=== PATIENT | male | born 1970 | race Caucasian/White ===

== ENCOUNTER 2018-04-21 18:25 | Observation (INO) ==
[2018-04-21] MEDS ORDERED: Aspirin 325 MG Tablet PO ONE (19:20)
--- NOTE | 2018-04-21 19:32 | ED ---
HPI General Chief Complaint: Chest Pain Stated Complaint: Chest pain Time Seen by Provider: 04/21/18 19:30 Source: patient Mode of arrival: ambulatory Limitations: no limitations History of Present Illness HPI narrative: 47-year-old male patient with history of cocaine use, presents to the ER today for headache and left-sided chest pains which she states is sharp, especially with taking a deep breath starting about 3-4 hours ago. He has had some elevated blood pressures recently but has not seen anybody for it. He denies any fevers, coughing, or any other symptoms. Pain is currently rated an 8 out of 10. Complete Quality Measures for STEMI Alert Patients Related Data Home Medications Medication Instructions Recorded Confirmed No Known Home Medications 04/21/18 04/21/18 Allergies Allergy/AdvReac Type Severity Reaction Status Date / Time acetaminophen Allergy Intermediate Abdominal Verified 04/21/18 18:39 Pain codeine Allergy Intermediate Abdominal Verified 04/21/18 18:39 Pain morphine Allergy Intermediate Abdominal Verified 04/21/18 18:39 Pain Review of Systems ROS: all other systems reviewed are negative [facility] Medical History Medical History Hypertension (Acute) Social History Social History Substance History: Active Abuse Smoking Status: Current every day smoker Tobacco Type: Cigarettes How Often Do You Have a Drink Containing Alcohol: 2 to 3 times a week Recent Travel in [facility] within the Last 8 Weeks: No Recent Out of Country Travel within the Last 8 Weeks: No Substance Abuse Detail Crack/Cocaine: Substance Use Status: Active Route Used Substance Abuse: Inhalation Substance Abuse Comment: used this am Reason for Use: Feels Good and Get High Immunization History Tetanus Immunization: Unsure Hx Influenza Vaccine This Season: No Exam Narrative Exam Narrative: GENERAL: Well-developed middle-age male patient currently in mild distress. Awake and oriented 3. SKIN: Focused skin assessment warm/dry. HEAD: Atraumatic. Normocephalic. EYES: Pupils equal and round. No scleral icterus. No injection or drainage. ENT: No nasal bleeding or discharge. Mucous membranes pink and moist. NECK: Trachea midline. No JVD. CARDIOVASCULAR: Regular rate and rhythm. No murmur appreciated. RESPIRATORY: No accessory muscle use. Clear to auscultation. Breath sounds equal bilaterally. GASTROINTESTINAL: Abdomen soft, non-tender, nondistended. Hepatic and splenic margins not palpable. MUSCULOSKELETAL: No obvious deformities. No clubbing. No cyanosis. No edema. NEUROLOGICAL: Awake and alert. No obvious cranial nerve deficits. Motor grossly within normal limits. Normal speech. PSYCHIATRIC: Appropriate mood and affect; insight and judgment normal. Course Initial Documented Vital Signs Temperature 98.4 F 04/21/18 18:33 Pulse Rate 89 04/21/18 18:33 Respiratory Rate 18 04/21/18 18:33 Blood Pressure 162/90 H 04/21/18 18:33 Pulse Oximetry 97 04/21/18 18:33 Last Documented Vital Signs Temperature 98.4 F 04/21/18 18:33 Pulse Rate 84 04/21/18 18:36 Respiratory Rate 20 04/21/18 18:36 Blood Pressure 171/84 H 04/21/18 18:36 Pulse Oximetry 98 04/21/18 21:49 Medical Decision Making MDM Narrative Medical decision making narrative: EKG was unremarkable. He is positive for cocaine. Lab work was fairly unremarkable and troponin was negative. Chest x- ray was unremarkable. At this point, my plan would be to admit him to chest pain center for further evaluation of his atypical chest pain. Medical Screen Exam Complete: Yes Emergency Medical Condition: Yes Differential Diagnosis Differential Diagnosis: ACS versus cocaine chest pain versus muscular skeletal versus pneumothorax Lab Data Lab results reviewed: Yes I reviewed the patient's lab results. Result diagrams: 04/21/18 19:42 04/21/18 19:42 Lab Results 04/21/18 04/21/18 04/21/18 Range/Units 19:42 19:42 20:10 WBC 11.0 (4.0-11.0) th/mm3 RBC 4.88 (4.50-5.90) mil/mm3 Hgb 16.3 (13.0-17.0) gm/dL Hct 47.0 (39.0-51.0) % MCV 96.3 (80.0-100.0) fL MCH 33.4 (27.0-34.0) pg MCHC 34.7 (32.0-36.0) % RDW 12.8 (11.6-17.2) % Plt Count 269 (150-450) th/mm3 MPV 9.0 (7.0-11.0) fL Neut % (Auto) 77.7 H (16.0-70.0) % Lymph % (Auto) 15.2 (9.0-44.0) % Dewey % (Auto) 6.4 (0.0-8.0) % Eos % (Auto) 0.0 (0.0-4.0) % Baso % (Auto) 0.7 (0.0-2.0) % Neut # (Auto) 8.5 H (1.8-7.7) th/mm3 Lymph # (Auto) 1.7 (1.0-4.8) th/mm3 Dewey # (Auto) 0.7 (0.0-0.9) th/mm3 Eos # (Auto) 0.0 (0.0-0.4) th/mm3 Baso # (Auto) 0.1 (0.0-0.2) th/mm3 WBC Differential . Differential Comment Auto diff final Sodium 140 (136-145) meq/L Potassium 3.3 L (3.5-5.1) meq/L Chloride 106 (98-107) meq/L Carbon Dioxide 21.3 (21.0-32.0) meq/L Anion Gap 13 (5-15) meq/L BUN 13 (7-18) mg/dL Creatinine 1.02 (0.60-1.30) mg/dL Estimated GFR 79 L (>89) mL/min Random Glucose 101 (74-106) mg/dL Calcium 9.3 (8.5-10.1) mg/dL Total Bilirubin 0.6 (0.2-1.0) mg/dL AST 23 (15-37) U/L ALT 31 (12-78) U/L Alkaline Phosphatase 76 (45-117) U/L Troponin I Less than 0.02 L (0.02-0.05) ng/mL Total Protein 8.0 (6.4-8.2) g/dL Albumin 4.3 (3.4-5.0) g/dL Urine Opiates Screen Neg (Neg) Ur Barbiturates Screen Neg (Neg) Ur Amphetamines Screen Neg (Neg) U Benzodiazepines Scrn Neg (Neg) Urine Cocaine Screen Pos H (Neg) U Cannabinoids Screen Pos H (Neg) Imaging Data Attestation: I personally reviewed and interpreted this imaging study as follows : Radiologist's impression: Chest X-Ray 04/21/18 19:20 CONCLUSION: Minimal bibasilar atelectatic changes. Discharge Plan Discharge Disposition Patient Disposition: 30 Still Patient Discharge Condition Condition: Stable Discharge Details Anticipated Discharge Date: 04/21/18 Diagnosis: Atypical chest pain Physicians Team ED Provider: Annika Argueta Primary Care Provider: Primary Care Mariel Greene Attending Provider: Mary Farley Discharge Interventions Interventions: Vital Signs Last Done: 04/21/18 18:36 Status ED Status: Admitted Observation Patient
--- NOTE | 2018-04-21 19:46 | XR ---
EXAM DATE: 04/21/2018 7:40 PM EDT AGE/SEX: 47 years / Male INDICATIONS: Chest pain. CLINICAL DATA: This is the patient's initial encounter. Patient reports that signs and symptoms have been present for 1 day and indicates a pain score of 5/10. MEDICAL/SURGICAL HISTORY: None. None. COMPARISON: No prior exams available for comparison. FINDINGS: Minimal bibasilar atelectatic changes are noted. The heart is normal. The pulmonary vascular pattern is normal. The lungs are otherwise clear. CONCLUSION: Minimal bibasilar atelectatic changes. Electronically signed by: Francisco Hodges MD 04/21/2018 7:45 PM EDT
[2018-04-21 20:27] LABS: Baso # (Auto) 0.1 th/mm3 (0.0-0.2); Baso % (Auto) 0.7 % (0.0-2.0); Hemoglobin 16.3 gm/dL (13.0-17.0); Lymph # (Auto) 1.7 th/mm3 (1.0-4.8); Lymph % (Auto) 15.2 % (9.0-44.0); Mean Corpuscular HGB Conc 34.7 % (32.0-36.0); Mean Corpuscular Hemoglobin 33.4 pg (27.0-34.0); Mean Corpuscular Volume 96.3 fL (80.0-100.0); Mono # (Auto) 0.7 th/mm3 (0.0-0.9); Mono % (Auto) 6.4 % (0.0-8.0); Neut # (Auto) 8.5 th/mm3 (1.8-7.7); Neut % (Auto) 77.7 % (16.0-70.0); Platelet Count 269 th/mm3 (150-450); Red Blood Count 4.88 mil/mm3 (4.50-5.90); Red Cell Distribution Width 12.8 % (11.6-17.2)
[2018-04-21 20:40] LABS: Amphetamine Screen,Urine Neg (Neg); Barbiturate Screen,Urine Neg (Neg); Cannabinoid Screen,Urine Pos (Neg); Cocaine Screen,Urine Pos (Neg)
[2018-04-21 20:49] LABS: Albumin 4.3 g/dL (3.4-5.0); Anion Gap 13 meq/L (5-15); Aspartate Aminotransferase 23 U/L (15-37); Blood Urea Nitrogen 13 mg/dL (7-18); Calcium 9.3 mg/dL (8.5-10.1); Carbon Dioxide 21.3 meq/L (21.0-32.0); Chloride 106 meq/L (98-107); Glomerular Filtration Rate 79 mL/min (>89); Glucose,Random 101 mg/dL (74-106); Potassium 3.3 meq/L (3.5-5.1); Sodium 140 meq/L (136-145)
[2018-04-21 20:50] LABS: Alanine Aminotransferase 31 U/L (12-78)
[2018-04-21 20:53] LABS: Opiate Screen,Urine Neg (Neg)
[2018-04-21 20:54] LABS: Alkaline Phosphatase 76 U/L (45-117)
[2018-04-22 00:07] LABS: Creatine Kinase 110 U/L (39-308)
[2018-04-22 07:26] LABS: Creatine Kinase 112 U/L (39-308)
--- NOTE | 2018-04-22 09:26 | P.HPCA ---
History of Present Illness Primary Care Physician: No Primary Care Physician Chief Complaint: Chest pain History of Present Illness: This is a 47-year-old male the presents to ED to be evaluated for chest discomfort that began yesterday around 1:00 in the afternoon. States it occurred while he is at work. He is cleaning up some tools at a job site. Is left-sided. Was sharp. Lasted a few hours. States he had smoked crack cocaine a few hours prior. States he does not use cocaine regularly the last time he used cocaine was 6 years ago. He was short of breath with symptoms. Denies nausea or diaphoresis. Denies history of CAD and cannot recall prior cardiac workup. Patient smokes 1 pack of cigarettes daily for 25 years. Used cocaine yesterday but states last time he used was 6 years prior. Has occasional alcohol use. Denies history of hypertension, hyperlipidemia, diabetes, and CAD. Denies family history of CAD. Denies taking any medications. - Diagnosis (1) Chest pain (2) Tobacco abuse (3) Cocaine use Review of Systems General: Patient denies fevers, chills, and recent travel. HEENT: Patient denies headache, sore throat, difficulty swallowing. Cardiovascular: Has the chest discomfort as mentioned above. Denies sensation of heart beating rapidly or irregularly. No syncope. Denies diaphoresis. Respiratory: He was short of breath. Denies inspirational chest discomfort. Denies coughing wheezing or hemoptysis. GI: Patient denies nausea, vomiting, diarrhea, abdominal pain, bloody stools. Musculoskeletal: Patient denies joint pain or edema. Denies calf pain or edema. Neurovascular: Patient denies numbness, tingling, weakness in extremities. Denies headache. Endocrine: Denies polyuria and polydipsia. Hematologic: Denies easy bruising. Skin: Denies rash or itching. PMFSH - History History Provided By: Patient - Medical History Medical History: Medical History (Last Reviewed 04/21/18 @ 19:32 by Annika Argueta MD) Hypertension - Tobacco History Second Hand Smoke Exposure: No Tobacco Use In Past 30 Days: Yes Smoking Status: Current every day smoker Tobacco Type: Cigarettes - Alcohol History How Often Do You Have a Drink Containing Alcohol: 2 to 4 times a month - Substance Use History Substance History: Active Abuse - Substance Use Type Crack/Cocaine Status: Active Route Used: Inhalation Reason for Use: Feels Good, Get High Comment: used this am - Travel History Recent Travel in the [place] Within the Last 8 Weeks: No Recent Travel Out of the Country Within the Last 8 Weeks: No - Immunization History Tetanus Immunization: Unsure Hx Influenza Vaccine This Season: No Medications and Allergies Active Medications: Active Medications Sodium Chloride (Ns Flush) 2 ml IV.FLUSH UNSCH PRN PRN Reason: FLUSH AFTER USING IV ACCESS Sodium Chloride (Ns Flush) 2 ml IV.FLUSH BID JOCELYNN Last Admin: 04/22/18 08:14 Dose: 2 ml Sodium Chloride (Ns Flush) 2 ml IV.FLUSH PRN PRN PRN Reason: FLUSH AFTER USING IV ACCESS Allergies Allergy/AdvReac Type Severity Reaction Status Date / Time acetaminophen Allergy Intermediate Abdominal Verified 04/21/18 18:39 Pain codeine Allergy Intermediate Abdominal Verified 04/21/18 18:39 Pain morphine Allergy Intermediate Abdominal Verified 04/21/18 18:39 Pain Home Medications Medication Instructions Recorded Confirmed Type No Known Home Medications 04/21/18 04/21/18 History Exam Vital signs: Vital Signs 04/21/18 18:33 04/21/18 18:36 04/21/18 19:20 Temperature 98.4 F Pulse Rate 89 84 Respiratory Rate 18 20 Blood Pressure 162/90 H 171/84 H Pulse Oximetry 97 100 98 04/21/18 20:07 04/21/18 21:49 04/21/18 23:06 Temperature 98.5 F Pulse Rate 72 Respiratory Rate 16 Blood Pressure 135/80 Pulse Oximetry 98 98 98 04/22/18 04:00 04/22/18 07:59 04/22/18 08:17 Temperature 97.5 F L 98.0 F Pulse Rate 59 L 62 Respiratory Rate 16 18 Blood Pressure 119/80 154/87 H Pulse Oximetry 96 98 98 04/22/18 08:37 Temperature Pulse Rate 61 Respiratory Rate Blood Pressure Pulse Oximetry Intake & Output 04/21/18 04/22/18 04/22/18 18:59 06:59 18:59 Intake Total 0 / 0 Balance 0 / 0 Weight 127.006 kg 127.006 kg Intake: Oral 0 / 0 Other: # Voids 1 Weight On Admission 127.006 kg Narrative: GENERAL: This is a well-nourished, well-developed patient, in no apparent distress. Patient speaks in clear complete sentences. Patient is pleasant. HEENT: Head is atraumatic and normocephalic. Neck is supple without lymphadenopathy and trachea is midline. No JVD or carotid bruits. CARDIOVASCULAR: Regular rate and rhythm without murmurs, gallops, or rubs. RESPIRATORY: Clear to auscultation. Breath sounds equal bilaterally. No wheezes , rales, or rhonchi. Chest wall is nontender. No use of accessory muscles. GASTROINTESTINAL: Abdomen is nontender, nondistended. Abdomen soft. No obvious pulsatile mass or bruit. No CVA tenderness. Strong femoral pulses bilaterally. Normal bowel sounds in all quadrants. MUSCULOSKELETAL: Patient is moving upper and lower extremities freely. No calf tenderness or edema, no Homans sign. Strong pulses in upper and lower extremities. NEUROLOGICAL: Patient is alert and oriented. Cranial nerves 2-12 are grossly intact. No focal deficits and speech is clear. SKIN: No rash and turgor is normal. Results 04/21/18 19:42 04/21/18 19:42 Cardiac Enzymes 04/21/18 04/21/18 04/22/18 Range/Units 19:42 23:00 05:35 AST 23 (15-37) U/L Troponin I Less than 0.02 L Less than 0.02 L Less than 0.02 L (0.02-0.05) ng/mL CBC 04/21/18 Range/Units 19:42 WBC 11.0 (4.0-11.0) th/mm3 RBC 4.88 (4.50-5.90) mil/mm3 Hgb 16.3 (13.0-17.0) gm/dL Hct 47.0 (39.0-51.0) % Plt Count 269 (150-450) th/mm3 Neut # (Auto) 8.5 H (1.8-7.7) th/mm3 Lymph # (Auto) 1.7 (1.0-4.8) th/mm3 Coleman # (Auto) 0.7 (0.0-0.9) th/mm3 Eos # (Auto) 0.0 (0.0-0.4) th/mm3 Baso # (Auto) 0.1 (0.0-0.2) th/mm3 Comprehensive Metabolic Panel 04/21/18 Range/Units 19:42 Sodium 140 (136-145) meq/L Potassium 3.3 L (3.5-5.1) meq/L Chloride 106 (98-107) meq/L Carbon Dioxide 21.3 (21.0-32.0) meq/L BUN 13 (7-18) mg/dL Creatinine 1.02 (0.60-1.30) mg/dL Calcium 9.3 (8.5-10.1) mg/dL AST 23 (15-37) U/L ALT 31 (12-78) U/L Alkaline Phosphatase 76 (45-117) U/L Total Protein 8.0 (6.4-8.2) g/dL Albumin 4.3 (3.4-5.0) g/dL Intake and Output 04/21/18 04/22/18 04/22/18 22:59 06:59 14:59 Intake Total 0 / 0 Balance 0 / 0 Intake: Oral 0 / 0 Other: # Voids 1 Weight 127.006 kg 127.006 kg Weight On Admission 127.006 kg EKG interpretations - EKG EKG shows: sinus rhythm (EKGs are sinus rhythm without significant ST segment depressions or elevations.) Caprini VTE Risk Assessment Caprini VTE Risk Assessment: No/Low Risk (score <= 1) Caprini Risk Assessment Model: Point Value = 1 Point Value = 2 Point Value = 3 Point Value = 5 Age 41-60 Minor surgery BMI > 25 kg/m2 Swollen legs Varicose veins or History of unexplained or recurrent spontaneous Oral contraceptives or hormone replacement Sepsis (< 1 month) Serious lung disease, including pneumonia (< 1 month) Abnormal pulmonary function Acute myocardial infarction Congestive heart failure (< 1 month) History of inflammatory bowel disease Medical patient at bed rest Age 61-74 Arthroscopic surgery Major open surgery (> 45 min) Laparoscopic surgery (> 45 min) Malignancy Confined to bed (> 72 hours) Immobilizing plaster cast Central venous access Age >= 75 History of VTE Family history of VTE Factor V Leiden Prothrombin [id number] Lupus anticoagulant Anticardiolipin antibodies Elevated serum homocysteine Heparin-induced thrombocytopenia Other congenital or acquired thrombophilia Stroke (< 1 month) Elective arthroplasty Hip, pelvis, or leg fracture Acute spinal cord injury (< 1 month) Prophylaxis Regimen: Total Risk Factor Score Risk Level Prophylaxis Regimen 0-1 Low Early ambulation 2 Moderate Order ONE of the following: *Sequential Compression Device (SCD) *Heparin 5000 units SQ BID 3-4 Higher Order ONE of the following medications: *Heparin 5000 units SQ TID *Enoxaparin/Lovenox 40 mg SQ daily (WT < 150 kg, CrCl > 30 mL/min) *Enoxaparin/Lovenox 30 mg SQ daily (WT < 150 kg, CrCl > 10-29 mL/min) *Enoxaparin/Lovenox 30 mg SQ BID (WT < 150 kg, CrCl > 30 mL/min) AND/OR *Sequential Compression Device (SCD) 5 or more Highest Order ONE of the following medications: *Heparin 5000 units SQ TID (Preferred with Epidurals) *Enoxaparin/Lovenox 40 mg SQ daily (WT < 150 kg, CrCl > 30 mL/min) *Enoxaparin/Lovenox 30 mg SQ daily (WT < 150 kg, CrCl > 10-29 mL/min) *Enoxaparin/Lovenox 30 mg SQ BID (WT < 150 kg, CrCl > 30 mL/min) AND *Sequential Compression Device (SCD) Assessment and Plan - Assessment (1) Chest pain Code(s): R07.9 - Chest pain, unspecified Status: Acute (2) Tobacco abuse Code(s): Z72.0 - Tobacco use Status: Acute (3) Cocaine use Code(s): F14.90 - Cocaine use, unspecified, uncomplicated Status: Acute - Plan * Chest pain: Patient has had serial cardiac enzymes and EKGs for ruling out purposes. He was seen by Dr. Farley of cardiology in the chest pain center. He will undergo a [place] protocol ETT and be discharged home if the stress test is nonischemic with instructions to follow-up with PCP. Return to ED for interval issues. * Tobacco abuse: Patient counseled importance of smoking cessation. * Cocaine use: Patient was counseled importance of never using cocaine again. Was explained to him that it could kill him. He voices understanding. Patient is stable at this time. He is agreeable to this plan. H&P: Quality - VTE Deep Vein Thrombosis/Pulmonary Embolism Present on Admission: No
--- NOTE | 2018-04-22 16:17 | ECG ---
Date Performed: 04/21/2018 Time Performed: 18:32:48 PTAGE: 47 years EKG: Sinus rhythm NORMAL ECG Since previous tracing, no significant change noted NO PREVIOUS TRACING DOCTOR: Mary Farley Interpretating Date/Time 04/22/2018 16:15:42
--- NOTE | 2018-04-22 16:20 | ECG ---
Date Performed: 04/21/2018 Time Performed: 23:10:58 PTAGE: 47 years EKG: Sinus rhythm POSSIBLE RIGHT VENTRICULAR CONDUCTION DELAY BORDERLINE ECG Since PREVIOUS TRACING , no significant change noted PREVIOUS TRACIN04/21/2018 18.32 DOCTOR: Mary Farley Interpretating Date/Time 04/22/2018 16:19:40
--- NOTE | 2018-04-22 16:20 | ECG ---
Date Performed: 04/22/2018 Time Performed: 01:53:35 PTAGE: 47 years EKG: Sinus rhythm NORMAL ECG Since PREVIOUS TRACING , no significant change noted PREVIOUS TRACIN04/21/2018 23.10 DOCTOR: Mary Farley Interpretating Date/Time 04/22/2018 16:19:54
--- NOTE | 2018-04-22 16:22 | TR ---
Date Performed: 04/22/2018 Time Performed: 09:31:38 DOCTOR: Mary Farley DRUG LIST: CLINICAL HISTORY: REASON FOR TEST: REASON FOR ENDING: OBSERVATION: CONCLUSION: DYANA PROTOCOL. NO CP. TEST STOPPED SECONDARY TO SOB AND LEG FATIGUE.Maximum AD=956 % Max HR Achieved=83.0% Maximum PB=652/90 Total Exercise Time=10:21 COMMENTS: No ischemia
== END 2018-04-22 12:48 | disposition home or self-care (01) ==
LOC: NEDA 18:25 → NEPE 18:25 → NEPHCDU 22:12
PROVIDERS: ADMIT Internal Medicine Interventional Cardiology; ATTEND Internal Medicine Interventional Cardiology
DX: Z88.5 Allergy status to narcotic agent; Z88.6 Allergy status to analgesic agent; F17.210 Nicotine dependence, cigarettes, uncomplicated; R07.89 Other chest pain; R94.31 Abnormal electrocardiogram [ECG] [EKG]; I10 Essential (primary) hypertension; F14.90 Cocaine use, unspecified, uncomplicated